=== PATIENT | female | born 1965 | race Caucasian/White ===

== ENCOUNTER 2016-10-06 12:22 | Emergency (ER) | payer OTHER ==
--- NOTE | 2016-10-06 13:33 | DIAGNOSTIC IMAGING REPORT ---
PROCEDURE: XR CHEST 1 VIEW INDICATION: CHEST PAIN TECHNIQUE: Portable AP view 01:14 p.m. COMPARISON: None. FINDINGS: Lungs are clear. Heart and mediastinum are normal. Thorax is normal. IMPRESSION: 1. Negative chest.
--- NOTE | 2016-10-06 14:07 | ED CLINICAL REPORT ---
Clinical Report - Physicians/Mid Levels [facility] [address] [place] [address] 10/06/2016 12:24 Patient: TOMAS CORRALES Time Seen: 12:33; initial patient contact. Arrived- By private vehicle. Historian- patient. HISTORY OF PRESENT ILLNESS Chief Complaint: CHEST DISCOMFORT. It is described as tightness and sharp and it is described as located in the central chest and left chest area. No radiation. At its maximum, severity described as moderate. When seen in the E.D., it was gone. Modifying factors- (L lateral position). Not worsened by anything. Not relieved by rest or upright position. This started last night and is now gone (resolved upon arrival in the emergency department). Onset during rest. The patient has had nausea. No vomiting, difficulty breathing or diaphoresis. Similar symptoms previously: None. Recent medical care: Not recently seen/assessed. REVIEW OF SYSTEMS No fever, chills, cough, pedal edema or calf pain. All systems otherwise negative, except as recorded above. PAST HISTORY Negative. Problems: no known problems. Surgeries: Had hysterectomy. Medications: None. SOCIAL HISTORY Never smoker. Occasional alcohol use. No drug use. ADDITIONAL NOTES The nursing notes have been reviewed. PHYSICAL EXAM Vital Signs: 10/06/2016 12:29 BP: 124/90. HR: 105. RR: 14. O2 saturation: 100%. Temp: 97.5 F. Pain level now: 310. Have been reviewed. Hypertensive. Tachycardic. Bradypneic. Temperature normal. Oxygen saturation normal. Appearance: Alert. Oriented X3. Eyes: Eyes normal inspection. ENT: Pharynx normal. Neck: Neck supple. No JVD. CVS: Normal heart rate and rhythm. Heart sounds normal. Respiratory: No respiratory distress. Breath sounds normal. Chest nontender. Abdomen: Soft and nontender. Bowel sounds normal. Skin: Normal skin color. No rash. Extremities: No calf tenderness. No lower extremity edema. Neuro: Oriented X 3. No motor deficit. LABS, X-RAYS, AND EKG EKG: EKG time: (1240). No acute process. No acute ischemia. Normal sinus rhythm. Rate: 91. Normal P waves. Normal ANNA. Normal QRS complex. Normal axis. Normal ST and T waves, QT and QTc. Prior EKG unavailable. The study has been interpreted contemporaneously by me. The study has been independently viewed by me. The EKG appears to be a good tracing. I do not agree with or confirm the computer reading of the EKG. Interpretation time: 1241. Chest X-ray: No acute disease. Normal lung markings present. Normal heart size. Mediastinum normal. Great vessels normal. Soft tissues normal. No infiltrate. No fracture. No bony lesion present. Views: AP. Technique: good. The X-rays were independently viewed by me and interpreted contemporaneously by me. Prior films were not available for comparison. Interpretation time: 13:25. Laboratory Tests: CBC w Diff: (CHERI: 10/06/2016 12:35) ( [facility] [facility] 10/06/2016 13:03) Final results Test Result Flag Units (Reference) WHITE BLOOD COUNT 9.3 K/uL (4.5-11.5) RED BLOOD COUNT 4.67 M/uL (4.00-5.20) HEMOGLOBIN 14.7 gm/dL (12.0-16.0) HEMATOCRIT 45.0 % (36.0-46.0) MEAN CELL VOLUME 96 fL (80-100) MEAN CORPUSCULAR HGB 31 pg (26-34) MEAN CORPUSCULAR HGB CONC 33 g/dL (31-37) RED CELL DISTRIBUTION WIDTH 13.0 % (11.6-14.8) PLATELET COUNT 266 K/uL (150-400) LYMPH % 37.4 % (25-40) MONO % 5.9 % (3-14) GRANULOCYTE % 56.7 (53-90) CHEM 13 PANEL: (CHERI: 10/06/2016 12:35) ( [facility] [facility] 10/06/2016 13:44) Final results Test Result Flag Units (Reference) GLUCOSE 98 mg/dL (70-110) BUN 19 H mg/dL (7-18) CREATININE 0.8 mg/dL (0.6-1.3) Estimated GFR >60 mL/min Estimated GFR- >60 mL/min Note: Persistent reduction over 3 months in eGFR<60 mL/min/1.73 m2 defines CKD. Patients with eGFR values>=60 mL/min/1.73 m2 may also have CKD if evidence ofpersistent proteinuria. Additional information may be foundat www.kidney.org. SODIUM 144 mmol/L (136-145) POTASSIUM 3.3 L mmol/L (3.5-5.1) CHLORIDE 103 mmol/L (98-107) CARBON DIOXIDE 28 mmol/L (21-32) CALCIUM 9.9 mg/dL (8.5-10.1) TOTAL PROTEIN 8.7 H g/dL (6.4-8.2) ALBUMIN 4.8 g/dL (3.3-5.0) BILIRUBIN, TOTAL 0.9 mg/dL (0.0-1.0) ALKALINE PHOSPHATASE 84 U/L (46-116) AST (SGOT) 32 U/L (15-37) ALT (SGPT) 48 U/L (12-78) MAGNESIUM 2.2 mg/dL (1.8-2.4) CPK 397 H U/L (24-260) CK-MB 0.8 ng/mL (0.5-3.2) %CKMB 0.2 % (0.0-4.0) TROPONIN I <0.05 ng/mL (0.00-1.5) TROPONIN REFERENCE RANGE:<0.1 NEGATIVE0.1-1.5 INDETERMINANT>1.5 POSITIVE . PROGRESS AND PROCEDURES Course of Care: Mild elevation of CPK, nl MB. Pt just finished stacking a lot of firewood. Disposition: Discharged home in good condition. Condition: good. CLINICAL IMPRESSION Atypical chest pain .12 lead EKG performed. INSTRUCTIONS Rest at home today and tomorrow. Your Current Medications: CONTINUE TAKING THE FOLLOWING MEDICATIONS: None*. Follow-up: Follow up with your doctor as scheduled. Screening today revealed the patient's blood pressure to be in the normal range. (Electronically signed by Clint Spangler Dr. 10/06/2016 14:15)
--- NOTE | 2016-10-06 14:07 | ED CLINICAL REPORT ---
Clinical Report - Physicians/Mid Levels [facility] [address] [place] [address] 10/06/2016 12:24 Patient: TOMAS CORRALES Time Seen: 12:33; initial patient contact. Arrived- By private vehicle. Historian- patient. HISTORY OF PRESENT ILLNESS Chief Complaint: CHEST DISCOMFORT. It is described as tightness and sharp and it is described as located in the central chest and left chest area. No radiation. At its maximum, severity described as moderate. When seen in the E.D., it was gone. Modifying factors- (L lateral position). Not worsened by anything. Not relieved by rest or upright position. This started last night and is now gone (resolved upon arrival in the emergency department). Onset during rest. The patient has had nausea. No vomiting, difficulty breathing or diaphoresis. Similar symptoms previously: None. Recent medical care: Not recently seen/assessed. REVIEW OF SYSTEMS No fever, chills, cough, pedal edema or calf pain. All systems otherwise negative, except as recorded above. PAST HISTORY Negative. Problems: no known problems. Surgeries: Had hysterectomy. Medications: None. SOCIAL HISTORY Never smoker. Occasional alcohol use. No drug use. ADDITIONAL NOTES The nursing notes have been reviewed. PHYSICAL EXAM Vital Signs: 10/06/2016 12:29 BP: 124/90. HR: 105. RR: 14. O2 saturation: 100%. Temp: 97.5 F. Pain level now: 310. Have been reviewed. Hypertensive. Tachycardic. Bradypneic. Temperature normal. Oxygen saturation normal. Appearance: Alert. Oriented X3. Eyes: Eyes normal inspection. ENT: Pharynx normal. Neck: Neck supple. No JVD. CVS: Normal heart rate and rhythm. Heart sounds normal. Respiratory: No respiratory distress. Breath sounds normal. Chest nontender. Abdomen: Soft and nontender. Bowel sounds normal. Skin: Normal skin color. No rash. Extremities: No calf tenderness. No lower extremity edema. Neuro: Oriented X 3. No motor deficit. LABS, X-RAYS, AND EKG EKG: EKG time: (1240). No acute process. No acute ischemia. Normal sinus rhythm. Rate: 91. Normal P waves. Normal ANNA. Normal QRS complex. Normal axis. Normal ST and T waves, QT and QTc. Prior EKG unavailable. The study has been interpreted contemporaneously by me. The study has been independently viewed by me. The EKG appears to be a good tracing. I do not agree with or confirm the computer reading of the EKG. Interpretation time: 1241. Chest X-ray: No acute disease. Normal lung markings present. Normal heart size. Mediastinum normal. Great vessels normal. Soft tissues normal. No infiltrate. No fracture. No bony lesion present. Views: AP. Technique: good. The X-rays were independently viewed by me and interpreted contemporaneously by me. Prior films were not available for comparison. Interpretation time: 13:25. Laboratory Tests: CBC w Diff: (CHERI: 10/06/2016 12:35) ( [facility] 10/06/2016 13:03) Final results Test Result Flag Units (Reference) WHITE BLOOD COUNT 9.3 K/uL (4.5-11.5) RED BLOOD COUNT 4.67 M/uL (4.00-5.20) HEMOGLOBIN 14.7 gm/dL (12.0-16.0) HEMATOCRIT 45.0 % (36.0-46.0) MEAN CELL VOLUME 96 fL (80-100) MEAN CORPUSCULAR HGB 31 pg (26-34) MEAN CORPUSCULAR HGB CONC 33 g/dL (31-37) RED CELL DISTRIBUTION WIDTH 13.0 % (11.6-14.8) PLATELET COUNT 266 K/uL (150-400) LYMPH % 37.4 % (25-40) MONO % 5.9 % (3-14) GRANULOCYTE % 56.7 (53-90) CHEM 13 PANEL: (CHERI: 10/06/2016 12:35) ( [facility] 10/06/2016 13:44) Final results Test Result Flag Units (Reference) GLUCOSE 98 mg/dL (70-110) BUN 19 H mg/dL (7-18) CREATININE 0.8 mg/dL (0.6-1.3) Estimated GFR >60 mL/min Estimated GFR- >60 mL/min Note: Persistent reduction over 3 months in eGFR<60 mL/min/1.73 m2 defines CKD. Patients with eGFR values>=60 mL/min/1.73 m2 may also have CKD if evidence ofpersistent proteinuria. Additional information may be foundat www.kidney.org. SODIUM 144 mmol/L (136-145) POTASSIUM 3.3 L mmol/L (3.5-5.1) CHLORIDE 103 mmol/L (98-107) CARBON DIOXIDE 28 mmol/L (21-32) CALCIUM 9.9 mg/dL (8.5-10.1) TOTAL PROTEIN 8.7 H g/dL (6.4-8.2) ALBUMIN 4.8 g/dL (3.3-5.0) BILIRUBIN, TOTAL 0.9 mg/dL (0.0-1.0) ALKALINE PHOSPHATASE 84 U/L (46-116) AST (SGOT) 32 U/L (15-37) ALT (SGPT) 48 U/L (12-78) MAGNESIUM 2.2 mg/dL (1.8-2.4) CPK 397 H U/L (24-260) CK-MB 0.8 ng/mL (0.5-3.2) %CKMB 0.2 % (0.0-4.0) TROPONIN I <0.05 ng/mL (0.00-1.5) TROPONIN REFERENCE RANGE:<0.1 NEGATIVE0.1-1.5 INDETERMINANT>1.5 POSITIVE . PROGRESS AND PROCEDURES Course of Care: Mild elevation of CPK, nl MB. Pt just finished stacking a lot of firewood. Disposition: Discharged home in good condition. Condition: good. CLINICAL IMPRESSION Atypical chest pain .12 lead EKG performed. INSTRUCTIONS Rest at home today and tomorrow. Your Current Medications: CONTINUE TAKING THE FOLLOWING MEDICATIONS: None*. Follow-up: Follow up with your doctor as scheduled. Screening today revealed the patient's blood pressure to be in the normal range. (Electronically signed by Clint Spangler Dr. 10/06/2016 14:15)
--- NOTE | 2016-10-06 14:07 | ED NURSING NOTES ---
Clinical Report - Nurses [facility] [address] [place] [address] 10/06/2016 12:24 Patient: TOMAS CORRALES TRIAGE Triage time 1225 PM. Acuity: LEVEL 2. Chief Complaint: CHEST PAIN and DISCOMFORT. Alert. No acute distress. SEPSIS SCREEN: Sepsis Screen. Negative (no infection suspected/documented). JACOB COMA SCORE: [place] Coma Scale: 15- eyes open spontaneously (4); best verbal response- oriented x 4 (5); best motor response- obeys commands (6). --12:45 Shameka Bryant R.N. 12:28 10/06/16. BP: 124/90. HR: 105. RR: 14. O2 saturation: 100%. Temp: 97.5 F (oral). Pain level now: 09/23. --12:45 Shameka Bryant R.N. Weight: 71.6 kg stated. Height/Length: 69 inches Per Patient. BMI: 23.3. --12:29 Shameka Bryant R.N. Medications None. --12:30 Shameka Bryant R.N. Medication/allergy information source: the patient. --12:45 Shameka Bryant R.N. Allergies No Known Drug Allergy. --14:37 Shameka Bryant R.N. History Arrived by private vehicle. Historian: patient. Accompanied by family. Primary physician (Dr. Sachin Garcia). ( Pt states first episode of CP initiated last night "which woke her up" with nausea, dizziness, SOB, and felt her HR being fast, approximately for about 20 minutes, pt did feel better when she rolled over to the left side. This morning patient states feeling weak "not right" and approximately 20 minutes ago felt CP again, with dizziness, H/A, denies being nausea or SOB, pt does admit to having diarrhea. Tried getting an appointment with her MD but unable to, decided to come to ED for further evaluation). This started last night. She has had difficulty breathing. No sweating episodes, nausea, vomiting, fever or cough. Treatment ACTUARIAL DIRECTOR: None. PAST MEDICAL HX: Immunizations: up-to-date. 2. Para 2. Sexual history - sexually active. No contraception. SOCIAL HX: Never smoker. Regular alcohol use; consumes beer weekly and wine by the glass. (2 x times a week). No drug use. No infectious disease exposure. ABUSE ASSESSMENT: No report of abuse. SELF HARM ASSESSMENT: A self harm assessment was performed. The patient answered "no" to the question "Do you have thoughts of harming or killing yourself?" and "Have you recently had thoughts about harming or killing others?". FALL RISK ASSESSMENT: Fall risk assessment completed. No fall risk identified. NUTRITIONAL RISK ASSESSMENT: The nutritional risk assessment revealed no deficiencies. FUNCTIONAL ASSESSMENT: Functional assessment: no impairments noted. LEARNING NEEDS ASSESSMENT: The learning needs assessment revealed no barriers. SKIN INTEGRITY ASSESSMENT: Skin integrity risk assessment completed. No skin integrity risk identified. --12:45 Shameka Bryant R.N. PROBLEMS: no known problems. ADDITIONAL SURGERIES: Hysterectomy. --12:30 Shameka Bryant R.N. Interventions ID band on patient. --12:45 Shameka Bryant R.N. PHYSICAL ASSESSMENT Ambulatory to room. GENERAL / NEURO / PSYCH: Alert. Oriented X 4. Appears in no acute distress. HEENT: Mucous membranes are pink. RESPIRATORY: Respirations not labored. Chest nontender. Breath sounds within normal limits. CVS: Normal sinus rhythm noted. Heart sounds within normal limits. Pulses within normal limits. Capillary refill less than 2 seconds. GI / : Abdomen soft and nontender. ( Pt does admit to having loose BM diarrhea like). EXTREMITIES: No lower extremity edema. SKIN: Skin is warm and dry. Normal skin turgor. Skin is non-tender. --12:45 Shameka Bryant R.N. NURSING PROGRESS NOTES 12:45 10/06/16. BP: 95/74. HR: 92. RR: 18. O2 saturation: 96% on room air. Pain level now: 0/10. --12:47 Shameka Bryant R.N. Cardiac rhythm: normal sinus rhythm. The initial plan of care for this patient has been created This plan of care was discussed with the patient. Monitoring of patient in place. EKG time: (1238 PM). Patient ID band checked for patient name, birthdate and medical record number: patient confirmed. Blood samples drawn from the right antecubital space peripheral IV site by nurse per protocol ; labeled in presence of the patient and sent to lab: rainbow set. Patient gowned. Warming measures: blanket applied. Reassurance given. Two patient identifiers checked. Call light placed in reach. Side rails up x 1. Bed placed in lowest position. Brakes of bed on. Patient ready for evaluation- chart flagged and ED physician notified. --12:47 Shameka Bryant R.N. HEENT: The patient reports headache. RESPIRATORY: Denies difficulty breathing. CVS: Denies chest pain. Normal sinus rhythm noted. Cardiac rhythm: normal sinus rhythm. GI / : Denies nausea. SKIN: Skin color within normal limits. --12:47 Shameka Bryant R.N. 12:45 10/06/2016 Site #1 started via IV in the right antecubital space with an 20g angiocath; one attempt. Blood drawn: rainbow set. Labeled in the presence of the patient and sent to the lab. --12:55 Shameka Bryant R.N. late entry - 13:00 PM. Cardiac rhythm: normal sinus rhythm. Monitoring of patient in place. Reassurance given. The patient is calm. Overall patient status is improved- she states feels better. RESPIRATORY: Denies difficulty breathing. CVS: Denies chest pain. --14:33 Shameka Bryant R.N. 13:02 10/06/16. BP: 106/65. HR: 85. RR: 15. O2 saturation: 100% on room air. Pain level now: 0/10. --14:33 Shameka Bryant R.N. late entry - 13:30 PM. Cardiac rhythm: normal sinus rhythm. beam press operator, pulse oximeter and NIBP monitor placed on patient. Reassurance given. The patient reports no complaints and she is calm. RESPIRATORY: Denies difficulty breathing. CVS: Denies chest pain. Normal sinus rhythm noted. SKIN: Skin color within normal limits. --14:34 Shameka Bryant R.N. 13:33 10/06/16. BP: 111/70. HR: 86. RR: 15 (regular and unlabored). O2 saturation: 100%. Pain level now: 0/10. --14:34 Shameka Bryant R.N. late entry - 14:00 PM. Cardiac rhythm: normal sinus rhythm. Reassurance given. The patient is calm and resting quietly. Overall patient status is improved- she states feels better. --14:35 Shameka Bryant R.N. 14:04 10/06/16. BP: 106/64 (regular adult cuff) taken on the left arm, via an automated monitor, while lying. HR: 78. RR: 14. O2 saturation: 100% on room air. Temp: 98.5 F (oral). Pain level now: 0/10. --14:35 Shameka Bryant R.N. DISPOSITION / DISCHARGE 14:35 10/06/2016 Site #1 removed upon discharge. Manual pressure and bandaid applied. --14:35 Shameka Bryant R.N. Cardiac rhythm: normal sinus rhythm. Departure time: 1432 PM. Condition at departure: improved and stable. The goals identified in the patient's plan of care were met. No learning barriers present. Discharge instructions provided and reviewed with the patient. Reviewed warnings (s/s of CP). Activity restrictions (rest) reviewed. Work note given. Patient verbalized understanding. Written instructions provided in Turkish. No medication instructions, treatment instructions or referrals given to the patient. The patient was discharged by the physician. She was discharged home and unaccompanied at time of discharge. She left the Emergency Department ambulatory and via private vehicle. Patient driving. FALL RISK ASSESSMENT: Fall risk assessment completed. No fall risk identified. JACOB COMA SCORE: [place] Coma Scale: 15- eyes open spontaneously (4); best verbal response- oriented x 4 (5); best motor response- obeys commands (6). --14:37 Shameka Bryant R.N. 14:25 10/06/16. BP: 136/65. HR: 87. RR: 16 (regular and unlabored). O2 saturation: 100% on room air. Temp: 98.6 F (oral). Pain level now: 0/10. --14:37 Shameka Bryant R.N. Locked/Released at 10/06/2016 14:37 by Shameka Bryant R.N.
--- NOTE | 2016-10-06 14:07 | ED ORDER SUMMARY ---
..... Patient: TOMAS CORRALES OrderSheet [facility] VisitID: [id number] [address] [place] [address] 50y, F Registration Date/Time: 10/06/2016 ORDER SHEET Weight: 71.6 kg (stated) Allergies: No Known Drug Allergy GENERAL ORDERS: Chest 1V Urgent (12:52 10/06/2016 EHassan R.N. per protocol) (Ack 13:02 OHernandez) (13:55 EHassan R.N.) Monument Erector (Continuous) (12:54 10/06/2016 EHassan R.N. per protocol) (12:55 EHassan R.N.) Cardiac Panel Stat (12:54 10/06/2016 EHassan R.N. per protocol) (Ack 13:02 OHzuleikanandez) (13:55 EHassan R.N.) Pulse oximeter (12:54 10/06/2016 EHassan R.N. per protocol) (12:55 EHassan R.N.) EKG - ER Stat (12:54 10/06/2016 EHassan R.N. per protocol) (Ack 13:02 OHernandez) (13:02 OHernandez) CMP Urgent (13:10/06/2016 EHassan R.N. per protocol) (Ack 13:02 OHernandez) (Cancelled: Duplicate Order13:04 ALawrence ER Tech1) CBC w Diff Urgent (13:10/06/2016 EHassan R.N. per protocol) (Ack 13:02 OHernandez) (Cancelled: Duplicate Order13:04 ALawrence ER Tech1) MEDICATION ORDERS: IV FLUIDS: IV Saline Lock (12:54 10/06/2016 EHassan R.N. per protocol) (12:55 EHassan R.N.) ORDER SHEET NOTES: [Electronically signed by Clint Spangler Dr. (14:15 10/06/2016)] [Electronically signed by Shameka Bryant R.N. (14:37 10/06/2016)] [Electronically locked/signed by Shameka Bryant R.N. (14:37 10/06/2016)]
--- NOTE | 2016-10-06 14:07 | ED ORDER SUMMARY ---
..... Patient: TOMAS CORRALES OrderSheet [facility] VisitID: [id number] [address] [place] [address] 50y, F Registration Date/Time: 10/06/2016 ORDER SHEET Weight: 71.6 kg (stated) Allergies: No Known Drug Allergy GENERAL ORDERS: Chest 1V Urgent (12:52 10/06/2016 EHassan R.N. per protocol) (Ack 13:02 OHernandez) (13:55 EHassan R.N.) Corset Fitter (Continuous) (12:54 10/06/2016 EHassan R.N. per protocol) (12:55 EHassan R.N.) Cardiac Panel Stat (12:54 10/06/2016 EHassan R.N. per protocol) (Ack 13:02 OHzuleikanandez) (13:55 EHassan R.N.) Pulse oximeter (12:54 10/06/2016 EHassan R.N. per protocol) (12:55 EHassan R.N.) EKG - ER Stat (12:54 10/06/2016 EHassan R.N. per protocol) (Ack 13:02 OHernandez) (13:02 OHernandez) CMP Urgent (13:10/06/2016 EHassan R.N. per protocol) (Ack 13:02 OHernandez) (Cancelled: Duplicate Order13:04 ALawrence ER Tech1) CBC w Diff Urgent (13:10/06/2016 EHassan R.N. per protocol) (Ack 13:02 OHernandez) (Cancelled: Duplicate Order13:04 ALawrence ER Tech1) MEDICATION ORDERS: IV FLUIDS: IV Saline Lock (12:54 10/06/2016 EHassan R.N. per protocol) (12:55 EHassan R.N.) ORDER SHEET NOTES: [Electronically signed by Clint Spangler Dr. (14:15 10/06/2016)] [Electronically signed by Shameka Bryant R.N. (14:37 10/06/2016)] [Electronically locked/signed by Shameka Bryant R.N. (14:37 10/06/2016)]
--- NOTE | 2016-10-06 14:38 | ED MED RECONCILIATION SUMMARY ---
Patient: TOMAS CORRALES Medication Reconciliation Report [facility] VisitID: [id number] [address] [place] [address] 50y, F Registration Date/Time: 10/06/2016 Weight: 71.6 kg Height/Length: 69 in. BMI: 23.3 ALLERGIES: No Known Drug Allergy The patient's Home Medications are listed below: NONE. The source(s) of the original Home Medication information: patient The following Medications were given to the patient in the Emergency Department: None. The following Medications were prescribed to the patient: None.
--- NOTE | 2016-10-06 14:38 | ED DISCHARGE INSTRUCTIONS ---
Patient: TOMAS CORRALES General Instructions [facility] VisitID: [id number] [place] [address] 50y, F Registration Date/Time: 10/06/2016 Atypical chest pain .12 lead EKG performed. INSTRUCTIONS Rest at home today and tomorrow. Your Current Medications: CONTINUE TAKING THE FOLLOWING MEDICATIONS: None*. Follow-up: Follow up with your doctor as scheduled. Screening today revealed the patient's blood pressure to be in the normal range. ADDITIONAL INFORMATION Chest Pain, Noncardiac Based on your visit today, the exact cause of your chest pain is not certain. Your condition does not seem serious and your pain does not appear to be coming from your heart. However, sometimes the signs of a serious problem take more time to appear. Therefore, please watch for the warning signs listed below. Home Care: Rest today and avoid strenuous activity. Take any prescribed medicine as directed. Follow Up with your doctor or this facility as instructed or if you do not start to feel better within 24 hours. Get Prompt Medical Attention if any of the following occur: A change in the type of pain: if it feels different, becomes more severe, lasts longer, or begins to spread into your shoulder, arm, neck, jaw or back Shortness of breath or increased pain with breathing Cough with dark colored sputum (phlegm) or blood Weakness, dizziness, or fainting Fever of 100.4F (38C) or higher, or as directed by your healthcare provider Swelling, pain or redness in one leg You have been given the following additional information: Chest Pain, Noncardiac Rest at home today and tomorrow. (Electronically signed by Clint Spangler Dr. 10/06/2016 14:15)
--- NOTE | 2016-10-06 14:38 | ED MAR SUMMARY ---
..... Medication Administration Record [facility] [address] [place] [id number] Patient: TOMAS OCRRALES Visit ID: [id number] 50y, F Weight: 71.6 kg Height/Length: 69 in BMI: 23.3 ALLERGIES: No Known Drug Allergy
--- NOTE | 2016-10-06 14:38 | ED MAR SUMMARY ---
..... Medication Administration Record [facility] [address] [place], [place] [id number] Patient: TOMAS CORRALES Visit ID: [id number] 50y, F Weight: 71.6 kg Height/Length: 69 in BMI: 23.3 ALLERGIES: No Known Drug Allergy
--- NOTE | 2016-10-06 14:38 | ED DISCHARGE INSTRUCTIONS ---
Patient: TOMAS CORRALES General Instructions [facility] VisitID: [id number] [place] [address] 50y, F Registration Date/Time: 10/06/2016 Atypical chest pain .12 lead EKG performed. INSTRUCTIONS Rest at home today and tomorrow. Your Current Medications: CONTINUE TAKING THE FOLLOWING MEDICATIONS: None*. Follow-up: Follow up with your doctor as scheduled. Screening today revealed the patient's blood pressure to be in the normal range. ADDITIONAL INFORMATION Chest Pain, Noncardiac Based on your visit today, the exact cause of your chest pain is not certain. Your condition does not seem serious and your pain does not appear to be coming from your heart. However, sometimes the signs of a serious problem take more time to appear. Therefore, please watch for the warning signs listed below. Home Care: Rest today and avoid strenuous activity. Take any prescribed medicine as directed. Follow Up with your doctor or this facility as instructed or if you do not start to feel better within 24 hours. Get Prompt Medical Attention if any of the following occur: A change in the type of pain: if it feels different, becomes more severe, lasts longer, or begins to spread into your shoulder, arm, neck, jaw or back Shortness of breath or increased pain with breathing Cough with dark colored sputum (phlegm) or blood Weakness, dizziness, or fainting Fever of 100.4F (38C) or higher, or as directed by your healthcare provider Swelling, pain or redness in one leg You have been given the following additional information: Chest Pain, Noncardiac Rest at home today and tomorrow. (Electronically signed by Clint Spangler Dr. 10/06/2016 14:15)
--- NOTE | 2016-10-06 14:38 | ED MED RECONCILIATION SUMMARY ---
Patient: TOMAS CORRALES Medication Reconciliation Report [facility] VisitID: [id number] [address] [place] [place] [address] 50y, F Registration Date/Time: 10/06/2016 Weight: 71.6 kg Height/Length: 69 in. BMI: 23.3 ALLERGIES: No Known Drug Allergy The patient's Home Medications are listed below: NONE. The source(s) of the original Home Medication information: patient The following Medications were given to the patient in the Emergency Department: None. The following Medications were prescribed to the patient: None.
== END 2016-10-06 14:30 | disposition home or self-care (01) ==
LOC: ED SRH 12:22
DX: R07.89 Other chest pain (principal)
CPT/HCPCS: 90100; 90616; 90617; 92610; 92720; 95059